=== PATIENT | female | born 1960 | race Caucasian/White ===

== ENCOUNTER 2019-04-30 13:57 | Emergency (ER) | payer BC ==
[2019-04-30 14:03] VITALS: BP 198/98; PULSE 85
[2019-04-30] MEDS ORDERED: Sodium Chloride 0.9% 10 ML Syringe FLUSH PRN (14:05)
[2019-04-30] MEDS ORDERED: Ketorolac 30 MG/ML SDV IVPUSH ONE (14:36)
[2019-04-30] MEDS ORDERED: Ondansetron 4 MG/2 ML SDV IVPUSH ONE (14:36)
[2019-04-30 14:41] LABS: CHLORIDE,CL 107 mmol/L (98-107); SODIUM,NA 144 mmol/L (136-145)
[2019-04-30] MEDS ORDERED: Sodium Chloride 0.9% 1,000 ML IV ONE (14:57)
[2019-04-30] MEDS ORDERED: Ertapenem 1 GM Vial IVPUSH ONE (16:12)
--- NOTE | 2019-04-30 16:24 | EDM.PDOC ---
ED HPI GENERAL MEDICAL PROBLEM - General Chief Complaint: Flank Pain Stated Complaint: right side pain Time Seen by Provider: 04/30/19 14:37 Source of Information: Reports: Patient History Limitations: Reports: No Limitations - History of Present Illness INITIAL COMMENTS - FREE TEXT/NARRATIVE: Sudden right mid abdominal pain that started around 10am. Mild nausea. No emesis. No previous pain similar to this. Three episodes of loose stools preceded the pain. No fevers/chills. [place] fine initially when she woke. Had several pieces of carter around 0830. No food since then. No previous abdominal surgeries. Denies HEENT/Resp/CV changes. No frequency or burning with urination. No hematuria/bloody stools. No neuro changes. 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) Other Treatments PARKING CASHIER: tums Right Abdominal Pain Score (Numeric/FACES): 10 - Related Data Allergies Allergy/AdvReac Type Severity Reaction Status Date / Time No Known Allergies Allergy Verified 04/30/19 16:39 Home Meds: Home Meds Doxycycline Monohydrate [Oracea] 40 mg PO BEDTIME 07/18/14 [History] Multivitamin [Multiple Vitamins] 1 tab PO QAM 07/18/14 [History] metroNIDAZOLE [Metrogel 1%] 1 ml TOP ASDIRECTED PRN 07/18/14 [History] Calcium Carb & Citrate/Vit D3 [Calcium + Vitamin D3 Caplet] 1 tab PO BEDTIME 06/23 [History] Past Medical History Dermatologic History: Reports: Other (See Below) (Rosacea) Social & Family History - Tobacco Use Smoking Status *Q: Never Smoker - Caffeine Use Caffeine Use: Reports: Coffee - Alcohol Use Alcohol Use History: Yes Days Per Week of Alcohol Use: 1 - Recreational Drug Use Recreational Drug Use: No ED ROS GENERAL - Review of Systems Review Of Systems: ROS reveals no pertinent complaints other than HPI. ED EXAM, GENERAL - Physical Exam Exam: See Below Exam Limited By: No Limitations General Appearance: Alert, WD/WN, Moderate Distress Eye Exam: Bilateral Eye: EOMI, PERRL Nose: No: Nasal Deformity, Nasal Swelling, Nasal Drainage Throat/Mouth: Normal Lips, Normal Voice, No Airway Compromise Head: Atraumatic, Normocephalic Neck: Supple, Non-Tender, Full Range of Motion Respiratory/Chest: No Respiratory Distress, Lungs Clear, Normal Breath Sounds, No Accessory Muscle Use, Chest Non-Tender Cardiovascular: Regular Rate, Rhythm, No Murmur GI/Abdominal: Soft, Rebound (single episode rebound pain), Tender (RLQ), Abnormal Bowel Sounds (decreased throughout). No: Guarding, Rigid (Female) Exam: Deferred Rectal (Female) Exam: Deferred Back Exam: Normal Inspection. No: CVA Tenderness (L), CVA Tenderness (R), Decreased Range of Motion, Muscle Spasm, Paraspinal Tenderness, Vertebral Tenderness Extremities: Normal Inspection, Non-Tender, Normal Capillary Refill Neurological: Alert, Oriented, Normal Cognition, Normal Gait, No Motor/Sensory Deficits Psychiatric: Normal Affect, Normal Mood Skin Exam: Warm, Dry, Intact Course - Vital Signs Last Recorded V/S: Last Vital Signs Temp 36.9 C 04/30/19 13:58 Pulse 85 04/30/19 13:58 Resp 20 04/30/19 13:58 BP 198/98 H 04/30/19 13:58 Pulse Ox 96 04/30/19 13:58 - Orders/Labs/Meds Orders: Active Orders 24 hr Category Date Time Status Abdomen Pelvis wo Cont [CT] Stat Exams 04/30/19 14:36 Ordered UA W/MICROSCOPIC [URIN] Stat Lab 04/30/19 14:05 Ordered Sodium Chloride 0.9% [Saline Flush] Med 04/30/19 14:05 Active 10 ml FLUSH ASDIRECTED PRN Saline Lock Insert [OM.PC] Stat Oth 04/30/19 14:05 Ordered Medication Orders Sodium Chloride (Saline Flush) 10 ml FLUSH ASDIRECTED PRN PRN Reason: Keep Vein Open Labs: Laboratory Tests 04/30/19 04/30/19 Range/Units 14:18 14:18 WBC 8.5 (4.0-10.2) K/uL RBC 5.09 (3.77-5.09) M/uL Hgb 15.1 (11.7-15.5) g/dL Hct 44.7 (34.0-46.0) % MCV 87.8 (84.0-98.0) fL MCH 29.7 (28.2-33.3) pg MCHC 33.8 (31.7-36.0) g/dL RDW 13.8 (11.2-14.1) % Plt Count 196 (150-350) K/uL Neut % (Auto) 71.2 (45.0-80.0) % Lymph % (Auto) 18.9 (10.0-50.0) % [place] % (Auto) 6.0 (2.0-14.0) % Eos % (Auto) 3.5 (0.0-5.0) % Baso % (Auto) 0.4 (0.0-2.0) % Neut # (Auto) 6.02 (1.40-7.00) K/uL Lymph # (Auto) 1.60 (0.50-3.50) K/uL [place] # (Auto) 0.51 (0.00-1.00) K/uL Eos # (Auto) 0.30 (0.00-0.50) K/uL Baso # (Auto) 0.03 (0.00-0.20) K/uL Sodium 144 (136-145) mmol/L Potassium 4.2 (3.5-5.1) mmol/L Chloride 107 (98-107) mmol/L Carbon Dioxide 23.3 (21.0-32.0) mmol/L BUN 18 (7-18) mg/dL Creatinine 0.90 (0.51-1.17) mg/dL Est Cr Clr Drug Dosing 70.41 mL/min Estimated GFR (MDRD) > 60 mL/min Glucose 110 H (74-106) mg/dL Calcium 9.6 (8.5-10.1) mg/dL Magnesium 2.2 (1.8-2.4) mg/dL Total Bilirubin 0.3 (0.2-1.0) mg/dL AST 24 (15-37) U/L ALT 65 (12-78) U/L Alkaline Phosphatase 85 (46-116) IU/L Total Protein 8.0 (6.4-8.2) g/dL Albumin 4.2 (3.4-5.0) g/dL Amylase 70 (25-115) U/L Lipase 113 (73-393) U/L Meds: Medications Generic Name Dose Route Start Last Admin Trade Name Freq PRN Reason Stop Dose Admin Sodium Chloride 10 ml 04/30/19 14:05 Saline Flush FLUSH ASDIRECTED PRN Keep Vein Open Discontinued Medications Generic Name Dose Route Start Last Admin Trade Name Freq PRN Reason Stop Dose Admin Ertapenem 1 gm 04/30/19 16:12 Invanz IVPUSH 04/30/19 16:13 ONETIME ONE Sodium Chloride 1,000 mls @ 999 mls/hr 04/30/19 14:57 04/30/19 15:12 Normal Saline IV 04/30/19 15:57 999 mls/hr .BOLUS ONE Administration Ketorolac Tromethamine 30 mg 04/30/19 14:36 04/30/19 15:03 Toradol IVPUSH 04/30/19 14:37 30 mg ONETIME ONE Administration Ondansetron HCl 4 mg 04/30/19 14:36 04/30/19 15:03 Zofran IVPUSH 04/30/19 14:37 4 mg ONETIME ONE Administration - Radiology Interpretation Free Text/Narrative:: CT/noncontrast to r/o kidney stone was + for acute changes suggesting appendicitis. - Re-Assessments/Exams Free Text/Narrative Re-Assessment/Exam: Normal CBC/Chem. Patient unable to provide UA sample. Significant relief with Toradol. IV fluid bolus given. Discussed imaging options with patient, including plain films, noncontrast CT, and contrast CT, along with pros/cons of each. Ultimately it was decided to obtain a noncontrast CT to rule out kidney stone. Radiology noted no stones, but did see stranding around appendix suggestive of early acute appendicitis. Patient elected to be referred to [facility]. Accepted for transfer by . Invanz given. Patient declined ambulance transfer and was transferred by private vehicle to [facility] ER. Departure - Departure Time of Disposition: 17:02 Disposition: DC/Tfer to Acute Hospital 02 Condition: Good Clinical Impression: Appendicitis Qualifiers: Appendicitis type: acute appendicitis Acute appendicitis type: with localized peritonitis Appendicitis gangrene presence: without gangrene Appendicitis perforation presence: without perforation Appendicitis abscess presence: without abscess Qualified Code(s): K35.30 - Acute appendicitis with localized peritonitis, without perforation or gangrene - Discharge Information *PRESCRIPTION DRUG MONITORING PROGRAM REVIEWED*: Not Applicable *COPY OF PRESCRIPTION DRUG MONITORING REPORT IN PATIENT COOPER: Not Applicable Referrals: PCP,None [Primary Care Provider] - Additional Instructions: Drive directly to [facility] and present to ER. They are expecting you. Do not eat or drink anything until after surgery is performed. - My Orders Last 24 Hours: My Active Orders 04/30/19 14:05 UA W/MICROSCOPIC [URIN] Stat Sodium Chloride 0.9% [Saline Flush] 10 ml FLUSH ASDIRECTED PRN Saline Lock Insert [OM.PC] Stat 04/30/19 14:36 Abdomen Pelvis wo Cont [CT] Stat - Assessment/Plan Last 24 Hours: My Active Orders 04/30/19 14:05 UA W/MICROSCOPIC [URIN] Stat Sodium Chloride 0.9% [Saline Flush] 10 ml FLUSH ASDIRECTED PRN Saline Lock Insert [OM.PC] Stat 04/30/19 14:36 Abdomen Pelvis wo Cont [CT] Stat
== END 2019-04-30 17:19 ==
LOC: LL.ED 13:57
DX: K35.30 Acute appendicitis with localized peritonitis, without perforation or gangrene (principal)
CPT/HCPCS: 36415; 74176; 80053; 81001; 82150; 83690; 83735; 85025; 96361; 96374; 96375; 99285; J1335; J1885; J2405; J7030